=== PATIENT | male | born 1995 | race Two or more races ===

== ENCOUNTER 2018-07-29 11:32 | Emergency (ER) | payer SELFPAY ==
[~2018-07-29] VITALS: Ht 190.5 cm; Wt 80.3 kg
[2018-07-29 11:38] VITALS: BP 139/79
--- NOTE | 2018-07-29 12:26 | NUR ---
Patient discharged to home in stable condition. Written and verbal after care instructions given. Patient verbalizes understanding of instruction.
== END 2018-07-29 12:28 | disposition home or self-care (01) ==
LOC: ER 11:36
DX: I88.9 Nonspecific lymphadenitis, unspecified (principal)
CPT/HCPCS: 76882